=== PATIENT | female | born 1995 | race Caucasian/White ===

== ENCOUNTER 2023-08-09 11:47 | Outpatient (CLI) | payer OTHER ==
[2023-08-09 13:55] LABS: #Monocytes 0.4 10x3/uL (0.0-1.1); #Neutrophils 3.7 10x3/uL (1.5-8.4); %Basophils 0.3 % (0.0-2.0); %Eosinophils 0.4 % (0.0-6.0); %Lymphocytes 40.3 % (18.0-47.0); %Neutrophils 52.9 % (40.0-75.0); Hematocrit 39.6 % (34.9-44.5); Hemoglobin 13.3 g/dL (12.0-15.5); Mean Corpuscular HGB CONC 33.6 g/dL (32.0-36.0); Mean Corpuscular Volume 89.2 fl (81.6-98.3); Mean Platelet Volume 12.3 fl (7.4-10.4); Platelet Count 246 10x3/uL (150-450); RBC Distribution Width 12.3 % (11.5-14.5); Red Blood Cell (RBC) Count 4.44 10x6/uL (3.90-5.03)
[2023-08-09 14:02] LABS: BHCG - Serum Negative (NEGATIVE); Pregs Control Bar Appear? YES (CONTROL BAR)
[2023-08-09 14:03] LABS: Pregs Control Background? CLEAR/WHITE (CLR/WHITE)
[2023-08-09 14:14] LABS: ALT (SGPT) 13 U/L (8-55); AST (SGOT) 18 U/L (5-34); Albumin 4.4 g/dL (3.5-5.0); Alkaline Phosphatase 52 U/L (40-110); Anion Gap 15 mmol/L (10-20); BUN (Urea Nitrogen) 11 mg/dL (7.0-18.7); Bilirubin, Total 1.1 mg/dL (0.2-1.2); Calc. Creatinine Clearance 0 mL/min (70-130); Calcium 9.7 mg/dL (7.8-10.44); Carbon Dioxide 25 mmol/L (22-29); Chloride 104 mmol/L (98-107); Estimated GFR 98; Globulin 3.5 g/dL (2.4-3.5); Glucose 77 mg/dL (70-105); Potassium 4.4 mmol/L (3.5-5.1); Protein, Total 7.9 g/dL (6.0-8.3); Sodium 140 mmol/L (136-145)
== END 2023-08-09 11:48 | disposition home or self-care (01) ==
LOC: LABBT 11:47
PROVIDERS: ATTEND Surgery
DX: Z01.812 Encounter for preprocedural laboratory examination (principal); L05.01 Pilonidal cyst with abscess
CPT/HCPCS: 80053; 84703; 85025

== ENCOUNTER 2023-08-17 12:06 | Day surgery (SDC) | payer OTHER ==
[2023-08-12 12:26] VITALS: BMI 38.4
[2023-08-17] MEDS ORDERED: Bupivacaine 0.25% HCL 30 ML VIAL ONE (12:10)
[2023-08-17] MEDS ORDERED: EPINEPHrine 1 MG/ML VIAL ONE (12:10)
[2023-08-17] MEDS ORDERED: SUGAMMADEX SODIUM 200 MG/2 ML VIAL ONE (12:11)
[2023-08-17] MEDS ORDERED: Famotidine/PF 20 mg/2ml Vial ONE (12:11)
[2023-08-17] MEDS ORDERED: fentaNYL 50 mcg/mL 1 mL Vial ONE ×2 (12:11→12:52)
[2023-08-17] MEDS ORDERED: PROPOFOL 20 ML ONE (12:12)
[2023-08-17] MEDS ORDERED: cefOXitin 2 GM VIAL ONE (12:17)
[2023-08-17] MEDS ORDERED: Sodium Chloride 0.9% 100 ML ONE (12:17)
[2023-08-17] MEDS ORDERED: Ketorolac Tromethamine 30 MG/ML VIAL ONE (12:59)
[2023-08-17] MEDS ORDERED: Ondansetron PF 4 MG/2 ML Vial ONE (12:59)
[2023-08-17] MEDS ORDERED: Dexamethasone 4 mg/ml Vial ONE (12:59)
[2023-08-17] MEDS ORDERED: HYDROcodone/Acetaminophen 5/325 mg Tablet ONE (14:50)
== END 2023-08-17 15:17 | disposition home or self-care (01) ==
LOC: SDC 12:06
PROVIDERS: ATTEND Surgery
PROC: 0HB8XZZ Excision of Buttock Skin, External Approach (ICD-10-PCS; principal; 2023-08-17)
DX: L05.01 Pilonidal cyst with abscess (principal); F31.89 Other bipolar disorder; Z79.899 Other long term (current) drug therapy
CPT/HCPCS: 88304; J0171; J0694; J1100; J1885; J2405; J2704; J3010; J3490; S0020; S0028